=== PATIENT | female | born 1990 | race Asian ===

== ENCOUNTER 2025-04-08 16:36 | Observation (INO) | payer OTHER, SELFPAY ==
[2025-04-08 16:52] VITALS: BP 113/80; BMI 29.7
[2025-04-08 17:24] LABS: Urine Character Clear (Clear)
[2025-04-08 17:53] LABS: Hematocrit 36.2 % (37.0-47.0); Hemoglobin 12.3 g/dL (12.0-16.0); Mean Corp Hgb Conc. 34.0 g/dL (33.0-37.0); Mean Corpuscular Volume 79.4 fL (81.0-99.0); Nucleated Red Blood Cells % 0 %; Platelet Count 233 10^3/uL (130-400); Red Cell Dist. Width 14.6 % (11.5-14.5)
[2025-04-08 18:05] LABS: Urine Squamous Cell >30 /LPF (Few)
[2025-04-08 18:06] LABS: ALT (SGPT) 13 U/L (0-35); AST (SGOT) 19 U/L (14-36); Albumin 3.8 g/dl (3.5-5.0); Alkaline Phosphatase 213 U/L (38-126); Blood Urea Nitrogen 4 mg/dl (7-17); Calcium 8.9 mg/dl (8.4-10.2); Carbon Dioxide 22 mmol/L (22-30); Chloride 108 mmol/L (98-107); Estimated Creatinine Clearance 124 ml/min; Glucose 130 mg/dl (70-99); Potassium 3.6 mmol/L (3.5-5.1); Sodium 137 mmol/L (135-145); Total Protein 6.8 g/dl (6.3-8.2); eGFR > 60.00
== END 2025-04-08 21:24 | disposition home or self-care (01) ==
LOC: LDRP 16:36
PROVIDERS: ADMITTING PHYSICIAN Obstetrics & Gynecology
DX: O47.03 False labor before 37 completed weeks of gestation, third trimester (principal); Z3A.38 38 weeks gestation of pregnancy
CPT/HCPCS: 76805; 80053; 80306; 81003; 81015; 82570; 84156; 85025; 86850; 86900; 86901; 87070; 87086; 87491; 87591

== ENCOUNTER 2025-04-09 01:33 | Observation (INO) | payer OTHER, SELFPAY ==
[2025-04-09 01:48] VITALS: BP 117/77; BMI 29.3
[2025-04-09 01:53] LABS: Glucose - Point of Care 97 mg/dl (70-99)
[2025-04-09] MEDS: STADOL 1 MG IV ×4 (02:05→09:40)
[2025-04-09 06:08] LABS: Glucose - Point of Care 91 mg/dl (70-99)
[2025-04-09] MEDS: LR 1000 IV (09:39)
[2025-04-09 09:45] LABS: Glucose - Point of Care 88 mg/dl (70-99)
== END 2025-04-09 13:18 | disposition home or self-care (01) ==
LOC: LDRP 01:33
PROVIDERS: ADMITTING PHYSICIAN Obstetrics & Gynecology
DX: O47.1 False labor at or after 37 completed weeks of gestation (principal); Z3A.38 38 weeks gestation of pregnancy; O09.33 Supervision of pregnancy with insufficient antenatal care, third trimester
CPT/HCPCS: 59899; 82962; G0378

== ENCOUNTER 2025-04-09 20:06 | Inpatient (IN) | payer OTHER, SELFPAY ==
[2025-04-09 20:33] VITALS: BP 111/83; BMI 29.7
[2025-04-09] MEDS: FENTANYL/BUPIVACAINE 100 EPIDURAL (21:39)
[2025-04-09] MEDS: SUBLIMAZE 100 MCG EPIDURAL (21:51)
[2025-04-10] MEDS: PITOCIN 30 UNITS/NSS 500 ML IV (02:13)
[2025-04-10] MEDS: FENTANYL/BUPIVACAINE 100 EPIDURAL (06:25)
[2025-04-10] MEDS: TYLENOL 975 MG PO (09:51)
[2025-04-10] MEDS: BICITRA 30 ML PO (09:51)
[2025-04-10] MEDS: ANCEF 10 IV (10:01)
[2025-04-10 10:09] LABS: Hematocrit 34.5 % (37.0-47.0); Hemoglobin 11.4 g/dL (12.0-16.0); Mean Corp Hgb Conc. 33.0 g/dL (33.0-37.0); Mean Corpuscular Volume 82.5 fL (81.0-99.0); Platelet Count 195 10^3/uL (130-400); Red Cell Dist. Width 14.7 % (11.5-14.5)
--- NOTE | 2025-04-10 11:03 | CM ---
CM attempted to meet Amanda and her . Per [facility] staff, pt currently in process of C/S.
Plan: CM to return tomorrow to complete IA, discuss needs for baby to come home.
[2025-04-10 11:07] LABS: Cord ABG B.E. - POC -0.9 mmol/L; Cord ABG HCO3 - POC 25 mmol/L; Cord ABG O2 Sat % - POC 38.7 %; Cord ABG pCO2 - POC 44 mmHg; Cord ABG pH - POC 7.36; Cord ABG pO2 - POC 24 mmHg
[2025-04-10 11:12] LABS: Cord VBG B.E. - POC -4.3 mmol/L; Cord VBG HCO3 - POC 21 mmol/L; Cord VBG O2 Sat % - POC 27.0 %; Cord VBG pCO2 - POC 38 mmHg; Cord VBG pH - POC 7.35; Cord VBG pO2 - POC 19 mmHg
[2025-04-10] MEDS: TORADOL 15 MG IV ×2 (17:19→23:57)
[2025-04-10] MEDS: COLACE PO (21:59)
[2025-04-11] MEDS: TORADOL 15 MG IV ×2 (05:06→11:58)
[2025-04-11 05:53] LABS: Hematocrit 29.9 % (37.0-47.0); Hemoglobin 10.0 g/dL (12.0-16.0); Mean Corp Hgb Conc. 33.4 g/dL (33.0-37.0); Mean Corpuscular Volume 82.1 fL (81.0-99.0); Platelet Count 205 10^3/uL (130-400); Red Cell Dist. Width 14.9 % (11.5-14.5)
--- NOTE | 2025-04-11 08:14 | W.PN.ANS.POP ---
Anesthesia Post Operative
- Anesthesia Post Op Note
Vital Signs Stable-See Nursing Note: Yes
Airway Patent: Yes
Adequate Pain Control: Yes
Change in Mental Status: No
Current Postoperative Nausea & Vomiting: No
Anesthesia Complications: No
General Anesthetic Recall: No
Unplanned Admission: No
Post Op Hydration Adequate: Yes
[2025-04-11] MEDS: COLACE PO (09:21)
--- NOTE | 2025-04-11 16:31 | CM ---
CM met with Amanda and her spouse, Devon; hey have named the baby Julio.
Amanda intends to breast feed and already has a pump in the home for when she is discharged. They have a car seat, a changing table, and diapers in the home. Per Dad, they are registered with [facility] pediatrics and will take the baby to see the
college associate after discharge.
Concern for co-sleeping with child, and when asked about where the baby would sleep, mom advised a crib or pack and play are too low and she would 'break her back'. They have set up a bed next to their bed 'with a fence' (to avoid him rolling off
the bed.
At the time of my visit the mother's bed was filled with pillows; mother insisted on keeping her baby with her despite teaching about safe sleeping. Per nursing, mom will not allow them to take the baby to the nursery, does not want to give up
holding the baby.
Attempted to call the [facility] call center to discuss concerns, however it was 4:28pm and I could not reach anyone.
Plan: CM to follow up with [facility] in AM to discuss the situation.
[2025-04-11] MEDS: ROXICODONE 5 MG PO (18:45)
[2025-04-11] MEDS: SENOKOT 17.2 MG PO (19:43)
[2025-04-11] MEDS: COLACE 100 MG PO (19:43)
[2025-04-11] MEDS: TYLENOL 650 MG PO (19:57)
[2025-04-12] MEDS: ROXICODONE 10 MG PO (00:54)
[2025-04-12] MEDS: COLACE PO (08:37)
--- NOTE | 2025-04-12 09:48 | CM ---
Addendum entered by Michelle Turner 04/12/25 10:07:
Dr. Hilario notified of call to [facility].
Original Note:
CM continues to follow patient and NB. Plan for discharge to home today.
Concern for co-sleeping with child, and when asked about where the baby would sleep, mom advised a crib or pack and play are too low and she would 'break her back'. They have set up a bed next to their bed 'with a fence' (to avoid him rolling off
the bed?).
At the time of my visit the mother's bed was filled with pillows; mother insisted on keeping her baby with her despite teaching about safe sleeping. Per nursing, mom will not allow them to take the baby to the nursery, does not want to give up
holding the baby.
Additionally, all screenings and medications were refused.
CM called [facility] to provide report. I spoke with Tammy shirt folding machine operator #[phone]; Tammy advised that [facility] will follow up on report.
[2025-04-13 15:47] LABS: Syphilis/T. pallidum Ab Reflex Negative (Negative)
== END 2025-04-12 12:25 | disposition home or self-care (01) | DRG 788 ==
LOC: LDRP 20:06
PROVIDERS: Obstetrics & Gynecology; ADMITTING PHYSICIAN Obstetrics & Gynecology
PROC: 10D00Z1 Extraction of Products of Conception, Low, Open Approach (ICD-10-PCS; 2025-04-10)
DX: O76 Abnormality in fetal heart rate and rhythm complicating labor and delivery (principal); Z3A.39 39 weeks gestation of pregnancy; Z37.0 Single live birth
CPT/HCPCS: 85027; 86780; 86850; 86900; 86901; 88307